=== PATIENT | female | born 1960 ===

== ENCOUNTER 2019-09-25 08:54 | Emergency (ER) | payer OTHER ==
[~2019-09-25] VITALS: Ht 177.8 cm; Wt 97.5 kg
[2019-09-25] MEDS ORDERED: HORIZANT300 MG (09:09)
[2019-09-25] MEDS ORDERED: NORFLEX100MG PO (14:49)
[2019-09-25] MEDS ORDERED: PERCOCET 5-3251 EACH PO (14:49)
[2019-09-25] MEDS ORDERED: CIPRO500 MG PO (14:49)
== END 2019-09-25 15:04 | disposition home or self-care (01) ==
LOC: ER 08:54
DX: I87.2 Venous insufficiency (chronic) (peripheral) (principal); M79.604 Pain in right leg; M54.89 Other dorsalgia

== ENCOUNTER → 2020-01-04 10:32 | Outpatient (CLI) | payer OTHER ==
[~2020-01-04 10:32] MED LIST: CIPRO500 MG PO; HORIZANT300 MG; NORFLEX100MG PO; PERCOCET 5-3251 EACH PO
== END | disposition home or self-care (01) ==
LOC: LAB 10:32
PROVIDERS: ATTEND Surgery
DX: R05 Cough (principal); Z03.818 Encounter for observation for suspected exposure to other biological agents ruled out; R50.9 Fever, unspecified; R06.1 Stridor